=== PATIENT | female | born 1930 ===

== ENCOUNTER → 2017-12-12 | Outpatient (CLI) | payer MEDICARE | LOC: BFHH 10:26 | PROVIDERS: ATTEND Family Medicine | DX: E03.9 Hypothyroidism, unspecified (principal); D64.9 Anemia, unspecified; I10 Essential (primary) hypertension ==

== ENCOUNTER 2017-12-15 11:56 | Emergency (ER) | payer OTHER, MEDICARE ==
[2017-12-15 12:07] VITALS: TEMP 98; O2SAT 93
--- NOTE | 2017-12-15 12:54 | ED.PDOC ---
History of Present Illness - General Chief Complaint: GI Problem Stated Complaint: vomiting, constipation Time Seen by Provider: 12/15/17 12:45 Source: patient Exam Limitations: clinical condition - History of Present Illness Initial Comments: Patient presents complaining of constipation and LUQ pain. She has had previous bouts of constipation and has been treated with daily enemas for the past 4 days. Her last enema was just before arrival here. She says she probably should have waited for it to work. The LUQ pain is constant and cramping, non-radiating , previous episodes have occurred with constipation, she had nausea today. No other complaints. Last BM was tuesday. Timing/Duration: changing over time Severity: moderate Improving Factors: nothing Worsening Factors: nothing Associated Symptoms: denies symptoms Allergies/Adverse Reactions: Allergies NO KNOWN ALLERGY Allergy (Verified 12/15/17 12:06) Review of Systems - Review of Systems Constitutional: States: no symptoms reported EENTM: States: no symptoms reported Respiratory: States: no symptoms reported Cardiology: States: no symptoms reported Gastrointestinal/Abdominal: States: see HPI Musculoskeletal: States: no symptoms reported Skin: States: no symptoms reported Neurological: States: no symptoms reported Endocrine: States: no symptoms reported Hematologic/Lymphatic: States: no symptoms reported Past Medical History (General) - Patient Medical History Hx Thyroid Disease: Yes Hx Gastroesophageal Reflux: Yes Surgical History: Hysterectomy - Vaccination History Hx Influenza Vaccination: Yes Hx Pneumococcal Vaccination: Yes - Social History Hx Tobacco Use: No Hx Alcohol Use: No Hx Substance Use: No Hx Substance Use Treatment: No Hx Depression: No - Activities of Daily Living [facility] (if applicable):: [facility] Family Medical History - Family History Mother Family History: Unknown Physical Exam - Physical Exam General Appearance: Alert Respiratory: chest non-tender, lungs clear Cardiovascular/Chest: normal peripheral pulses, regular rate, rhythm Gastrointestinal/Abdominal: normal bowel sounds, non tender, soft Back Exam: no CVA tenderness 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 Patient was given magnesium citrate to take. Advised to keep well hydrated. Departure - Departure Clinical Impression: Constipation Disposition: Discharge to Home or Self Care Condition: Good Departure Forms: ED Discharge - Pt. Copy, Patient Portal Self Enrollment Instructions: DI for Constipation Diet: other - increase oral fluids
--- NOTE | 2017-12-15 16:29 | CT ---
EXAM DESCRIPTION: Abdomen/Pelvis w/wo Contrast CLINICAL HISTORY: abdominal pain COMPARISON: None Available TECHNIQUE: Contiguous axial images of the abdomen and pelvis were obtained prior to and after the administration of intravenous contrast followed by reconstruction images.This exam was performed according to our departmental dose-optimization program, which includes automated exposure control, adjustment of the mA and/or kV according to patient size and/or use of iterative reconstruction technique. FINDINGS: There is collapse of T12 and L1 that may be chronic. Degenerative changes are present. Hardware is in the right proximal femur. There is atelectasis at the posterior right lung base. There is colonic diverticulosis. No definite diverticulitis. There is a small hiatal hernia. Low-attenuation lesions of the left kidney could be cysts but are nonspecific and some are poorly defined. There is mild probable scarring of the left renal parenchyma. No obstruction of either ureter. There is trace fluid in the pelvis. No significant bowel wall thickening. There is mild right posterior pleural thickening. There is no hydronephrosis. The gallbladder wall is mildly thickened. There is no significant pericholecystic fluid. No calcified gallstone is seen. The common duct is enlarged at 9 mm diameter. No definite intraluminal filling defect is seen. There is no significant intrahepatic biliary dilatation. Adrenal glands are within normal limits. Aorta is normal in caliber and tapering. No significant free fluid. No free air. No bowel obstruction. There is no stranding of the mesenteric fat. The appendix appears normal. No evidence of periappendiceal inflammation. IMPRESSION: Gallbladder wall mild thickening and enlargement of the common duct with no clear obstructive lesion seen. No other clear etiology for acute pain. Electronically signed by: Costa Figueroa 12/15/2017 4:28 PM UNIT COORDINATOR
[2017-12-15] MEDS ORDERED: MAGNESIUM CITRATE 300 ML BTTL PO ONE (17:52)
[2017-12-15 18:15] VITALS: BP 182/84
== END 2017-12-15 18:15 | disposition home or self-care (01) ==
LOC: ER 11:56
DX: K59.00 Constipation, unspecified (principal); E07.9 Disorder of thyroid, unspecified; K21.9 Gastro-esophageal reflux disease without esophagitis

== ENCOUNTER 2019-01-19 16:50 | Emergency (ER) | payer MEDICARE, OTHER ==
[2019-01-19] MEDS ORDERED: NITROGLYCERIN 0.4 MG 25 EA TAB SL ONE (17:08)
[2019-01-19 17:11] VITALS: TEMP 98.8
[2019-01-19] MEDS: ASPIRIN TABLET 325 MG TAB PO ONE (17:12)
[2019-01-19] MEDS: NITROGLYCERIN 0.4 MG 25 EA TAB SL PRN (17:14)
--- NOTE | 2019-01-19 17:25 | RAD ---
EXAM DESCRIPTION: Chest,2 Views CLINICAL HISTORY: chest pain 3 days COMPARISON: None TECHNIQUE: PA/lateral FINDINGS: Heart is enlarged with increased pulmonary vascularity. Blunting of the costophrenic angles bilaterally is consistent with small pleural effusions. No pleural effusion or pneumothorax. Lungs are clear with no consolidating infiltrate. Lateral view shows intact sternum and osteoporotic T-spine with accentuated kyphosis from multilevel thoracic compressions. Aorta is calcified. IMPRESSION: Large heart with moderate vascular congestion. Small bilateral pleural effusions. Electronically signed by: Star Bond MD 01/19/2019 5:22 PM CDT
[2019-01-19] MEDS: predniSONE 20 MG TAB PO ONE (18:16)
[2019-01-19] MEDS: diphenhydrAMINE HCL 25 MG CAP PO ONE (18:24)
[2019-01-19] MEDS: ACETAMINOPHEN 325 MG TAB PO ONE (18:24)
[2019-01-19] MEDS: FUROSEMIDE INJ 20 MG/2 ML VIAL IV ONE (18:25)
[2019-01-19] MEDS: METOPROLOL TARTRATE INJ 5 MG/5 ML VIAL IV ONE (18:26)
--- NOTE | 2019-01-19 18:48 | CT ---
EXAM: Abdoment/Pelvis w/o Contrast CLINICAL INDICATION: 88-year-old female with anemia. COMPARISON: 12/15/2017. EXAMINATION: CT of the abdomen and pelvis was performed without intravenous or oral contrast. Multiplanar reformatted images were provided. This exam was performed according to our departmental dose optimization program which includes use of automated exposure control, adjustment of the mA and/or kV according to patient size and/or use of iterative reconstruction technique. FINDINGS: Evaluation of solid organ pathology is limited secondary to lack of intravenous contrast. Examination findings are further limited by motion artifact. Within these limitations, the following observations are made. Chest: Motion limited evaluation through the lung bases reveals subsegmental atelectasis, scarring and small bilateral pleural effusion. Top normal heart size with trace pericardial effusion versus thickening. Abdomen and pelvis: The liver, gallbladder, pancreas, spleen, bilateral kidneys and bilateral adrenal glands are within normal limits. Nonspecific trace volume of stranding is identified anterior to the gallbladder fossa. No adjacent bowel wall thickening is clearly identified. Evaluation through the gallbladder is significantly limited by extensive patient motion artifact. The possibility of inflammatory change at the level of the gallbladder fossa may be considered. Further evaluation with RIGHT upper quadrant sonography may be considered. Additional considerations may include inflammatory change, fluid collection of unclear source including chest wall or hepatic source of unclear etiology. No layering fluid collection noted along the course of the bilateral paracolic gutter or dependent pelvis. The vessels reveal atherosclerotic calcification otherwise in caliber. No abdominopelvic lymph nodes are noted to be pathologically enlarged by CT measurement criteria. Large volume of fecal content present throughout the large bowel raising the question of fecal stasis or constipation. The bowel is within normal limits without abnormal bowel wall thickness or bowel dilation. Diverticular disease without findings to suggest diverticulitis. No free air. No free abdominopelvic fluid collections. The appendix is within normal limits. The osseous structures reveal diffuse demineralization and degenerative change. Multilevel stable appearing compression fracture deformities of the L1, T12 and T10 vertebral levels. RIGHT intramedullary angy and screw device noted. Small fat-containing ventral abdominal umbilical hernia. IMPRESSION: 1. Nonspecific stranding present at the level of the ventral abdomen adjacent to the gallbladder fundus as detailed above. 2. Large volume of fecal content present throughout the large bowel raising the question of fecal stasis or constipation. 3. Small bilateral pleural effusion. 4. Diverticular disease without findings to suggest diverticulitis. Electronically signed by: Karla Chavez MD 01/19/2019 6:44 PM CDT
[2019-01-19] MEDS: cloNIDine HCL 0.1 MG TAB PO ONE (19:05)
[2019-01-19] MEDS: SUCRALFATE 1 GM/10 ML 1 GM UD PO ONE (19:05)
[2019-01-19] MEDS: PANTOPRAZOLE SODIUM IV 40 MG VIAL IV ONE (19:05)
--- NOTE | 2019-01-19 19:09 | ED.PDOC ---
History of Present Illness - General Chief Complaint: Cardiovascular Problem Stated Complaint: Chest discomfort Time Seen by Provider: 01/19/19 16:53 Source: patient Exam Limitations: no limitations - History of Present Illness Initial Comments: The patient is a 8-year-old female presenting to the emergency room secondary to 3 days of some progressive shortness of breath and mild chest pressure with activity. Both seem to essentially go away with rest. She is not hypoxic. Chest discomfort is rated at about a 3 out of 10 at its worst. The patient does look pale. No history of any vomiting of blood or bloody stools or melanotic stools. She has had a history of some anemia in the past and positive fecal occults and was scoped with Dr. Green about a year and a half ago above and below according to her without finding any source. She denies having had a transfusion in the past. the patient reports that she had her heart stop about 3 years ago and subsequently had a stroke. That occurred while she was in the hospital undergoing workup for some difficulty with her uterus. That did occur at [facility]. Her doctor is Dr. Oglesby. the patient reports it has been quite a few months since her last blood draw. Timing/Duration: other - 3 days Severity: moderate Improving Factors: nothing Worsening Factors: movement Associated Symptoms: chest pain, malaise, shortness of breath Allergies/Adverse Reactions: Allergies NO KNOWN ALLERGY Allergy (Verified 01/19/19 17:11) Home Medications: Ambulatory Orders Bisoprolol Fumarate 5 mg PO DAILY 01/19/19 Levothyroxine Sodium [Synthroid] 100 mcg PO DAILY 01/19/19 Pantoprazole Sodium 40 mg PO DAILY 01/19/19 Review of Systems - Review of Systems Constitutional: States: malaise, weakness EENTM: States: no symptoms reported Respiratory: States: short of breath Cardiology: States: chest pain, edema Gastrointestinal/Abdominal: States: no symptoms reported Genitourinary: States: no symptoms reported Musculoskeletal: States: no symptoms reported Skin: States: no symptoms reported Neurological: States: no symptoms reported Endocrine: States: no symptoms reported Hematologic/Lymphatic: States: anemia All other Systems: No Change from Baseline Past Medical History (General) - Patient Medical History Hx Stroke: Yes - 2012 Hx Cardiac Disorders: Yes - PA 2012 Hx Congestive Heart Failure: No Hx Hypertension: Yes Hx Thyroid Disease: Yes Hx Gastroesophageal Reflux: Yes Hx MRSA: No Surgical History: other - Vaccination History Hx Influenza Vaccination: Yes - 2017 Hx Pneumococcal Vaccination: Yes - Social History Hx Tobacco Use: No Hx Alcohol Use: No Hx Substance Use: No Hx Substance Use Treatment: No Hx Depression: No - Activities of Daily Living [facility] Living (if applicable):: [facility] Family Medical History - Family History Mother Family History: Unknown Physical Exam - Physical Exam General Appearance: Alert, Comfortable, No apparent distress Eye Exam: bilateral normal Ears, Nose, Throat: hearing grossly normal, normal ENT inspection, normal pharynx, other - pale mucous membranes Neck: full range of motion Respiratory: no respiratory distress, no accessory muscle use, other - mild rales at bilateral bases but no increased work of breathing Cardiovascular/Chest: normal peripheral pulses, regular rate, rhythm Peripheral Pulses: radial,right: 2+, radial,left: 2+ Gastrointestinal/Abdominal: non tender, soft Rectal Exam: deferred Back Exam: no CVA tenderness, no vertebral tenderness Extremity: normal range of motion, non-tender, normal inspection, pedal edema - 1+ bilaterally 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 It appears that the most likely baseline problem here is her significant anemia. She is being typed and crossed and she is starting her first unit for transfusion. The patient has what appears to be significant iron deficiency anemia. Several years ago her MCV was up at 90 and it is 64 today. The patient is likely suffering from a slow GI loss as the most likely source. Malabsorption of iron is certainly a possibility as well. The patient has received Protonix and Carafate and Maalox here. She is not having any abdominal pain. She has not reported any symptoms of active bleeding, melanotic stools or hematochezia. She did receive endoscopies with Dr. Green according to her about a year and a half ago that were essentially normal. The patient will obviously require more blood. Additionally the patient is in a CHF exacerbation likely due to the anemia and the hypertension. The patient is receiving 1 dose of IV Lasix prior to transfusion. she also received a dose of Benadryl, Tylenol and prednisone prior. She is also being placed on oxygen though she is not technically hypoxic. Hopefully this will aid somewhat in oxygen delivery in her anemic state. For the hypertension the patient has received a dose of Lopressor, clonidine and nitroglycerin. Blood pressures are down in the high 160s and low 170s on the systolic end. She has received an oral dose of clonidine which we are giving a chance to work. She is essentially asymptomatic at this time at rest. Her EKG does have numerous changes that can indicate ischemia including multiple flipped T waves. This may simply be due to her significantly anemic state. I do not have previous EKGs for comparison. Her troponin is negative. Certainly if these flipped T waves are a new finding and do not correct with correction of the anemia, then a cardiology consultation may be warranted. transferred for higher level of care. She did receive 1 dose of aspirin upon arrival due to the chest pain. No other blood thinners have been given. - Results/Orders Results/Orders: chest x-ray shows cardiomegaly as well as some vascular congestion and bilateral pleural effusions. CT of abdomen and pelvis showed no evidence of any obvious internal bleeding or large hematoma. No evidence of any obvious mass. Study is significantly limited by lack of IV contrast and movement. She does have bilateral basilar pleural effusions that are small. Evidence of CHF is present. EKG shows normal sinus rhythm at 74 bpm with poor R-wave progression in anterior leads. She has flipped T waves in anterior and inferior leads. No significant ST segment deviation. Normal axis. Possible Q waves in inferior leads. Borderline QT interval. I do not have a previous EKG for comparison. Laboratory Tests 01/19/19 01/19/19 01/19/19 17:10 17:10 17:10 WBC 6.2 RBC 2.92 L Hgb 5.5 L* Hct 18.8 L MCV 64.5 L MCH 19.0 L MCHC 29.5 L RDW 18.8 H Plt Count 400 MPV 7.7 Absolute Neuts (auto) 3.60 Absolute Lymphs (auto) 2.00 Absolute Monos (auto) 0.50 Absolute Eos (auto) 0.00 Absolute Basos (auto) 0.00 Neutrophils % 58.3 Lymphocytes % 32.1 Monocytes % 8.6 Eosinophils % 0.2 L Basophils % 0.8 PT 10.8 INR 1.08 PTT (SP) 26.1 D-Dimer, Quantitative 1.95 H* Sodium Potassium Chloride Carbon Dioxide Anion Gap BUN Creatinine BUN/Creatinine Ratio Random Glucose Serum Osmolality Calcium Magnesium Total Bilirubin AST ALT Alkaline Phosphatase Creatine Kinase 85 CK-MB (CK-2) 2.6 CK-MB (CK-2) % Not Reportable Troponin I < 0.02 B-Natriuretic Peptide 1050.0 H* Serum Total Protein Albumin Globulin Albumin/Globulin Ratio Urine Color Urine Appearance Urine pH Ur Specific Ethel Urine Protein Urine Glucose (UA) Urine Ketones Urine Blood Urine Nitrite Urine Bilirubin Urine Urobilinogen Ur Leukocyte Esterase Urine RBC Urine WBC Ur Epithelial Cells Urine Bacteria Patient ABO/Rh Crossmatch 01/19/19 01/19/19 01/19/19 17:10 17:15 17:29 WBC RBC Hgb Hct MCV MCH MCHC RDW Plt Count MPV Absolute Neuts (auto) Absolute Lymphs (auto) Absolute Monos (auto) Absolute Eos (auto) Absolute Basos (auto) Neutrophils % Lymphocytes % Monocytes % Eosinophils % Basophils % PT INR PTT (SP) D-Dimer, Quantitative Sodium 133 L Potassium 3.7 Chloride 102 Carbon Dioxide 20 L Anion Gap 14.7 BUN 20 H Creatinine 0.82 BUN/Creatinine Ratio 24.4 H Random Glucose 126 H Serum Osmolality 270.5 L Calcium 8.1 L Magnesium 2.1 Total Bilirubin 0.3 AST 34 ALT 27 Alkaline Phosphatase 81 Creatine Kinase CK-MB (CK-2) CK-MB (CK-2) % Troponin I B-Natriuretic Peptide Serum Total Protein 7.5 Albumin 3.5 Globulin 4.0 H Albumin/Globulin Ratio 0.9 L Urine Color Yellow Urine Appearance Sl cloudy Urine pH 5.5 Ur Specific Ethel 1.025 Urine Protein Trace Urine Glucose (UA) Negative Urine Ketones Negative Urine Blood Negative Urine Nitrite Negative Urine Bilirubin Negative Urine Urobilinogen 0.2 Ur Leukocyte Esterase Small H Urine RBC 0 Urine WBC 5-10 H Ur Epithelial Cells 5-10 Urine Bacteria 1+ Patient ABO/Rh A POSITIVE Crossmatch See Detail Departure - Departure Clinical Impression: Symptomatic anemia, Cardiac ischemia, Hypertensive emergency Acute exacerbation of CHF (congestive heart failure) Qualifiers: Heart failure type: unspecified Qualified Code(s): I50.9 - Heart failure, unspecified Disposition: Transfer to Hospital Departure Forms: ED Discharge - Pt. Copy, Patient Portal Self Enrollment Home Medications: Ambulatory Orders Bisoprolol Fumarate 5 mg PO DAILY 01/19/19 Levothyroxine Sodium [Synthroid] 100 mcg PO DAILY 01/19/19 Pantoprazole Sodium 40 mg PO DAILY 01/19/19 Transfer to Outside Facility - Transfer Information Accepting Provider:: dr tamayo Accepting Facility: [id number] Reason for Transfer: required specialist not available
[2019-01-19] MEDS ORDERED: NITROGLYCERIN/D5W IV 250 ML IVS ONE (19:29)
[2019-01-19] MEDS ORDERED: SODIUM CHLORIDE 0.9% 500ML 500 ML ONE (19:31)
[2019-01-19] MEDS: NITROGLYCERIN/D5W IV 50,000 MCG in PREMIX BOTTLE 1 BOTTLE IVS ONE (19:40)
[2019-01-19 20:10] VITALS: BP 140/93; O2SAT 95
== END 2019-01-19 20:10 | disposition short-term general hospital (02) ==
LOC: ER 16:50
DX: I50.9 Heart failure, unspecified (principal); I16.1 Hypertensive emergency; I11.0 Hypertensive heart disease with heart failure; D64.9 Anemia, unspecified; I25.9 Chronic ischemic heart disease, unspecified; I25.2 Old myocardial infarction; E07.9 Disorder of thyroid, unspecified; K21.9 Gastro-esophageal reflux disease without esophagitis; Z79.899 Other long term (current) drug therapy
CPT/HCPCS: 36415; 71046; 74176; 80053; 81001; 82550; 82553; 83735; 83880; 84484; 85025; 85379; 85610; 85730; 86922; 87086; 93005; J1940; J7040; J7512; P9016; Q0163

== ENCOUNTER → 2019-03-06 | Outpatient (CLI) | payer MEDICARE, OTHER | LOC: BFHH 08:46 | PROVIDERS: ATTEND General Practice | DX: D64.9 Anemia, unspecified (principal); I10 Essential (primary) hypertension ==